=== PATIENT | male | born 1965 | race Caucasian/White ===

== ENCOUNTER 2019-09-26 00:02 | Emergency (ER) | payer BC ==
[~2019-09-26] VITALS: Ht 172.7 cm; Wt 78.0 kg
--- NOTE | 2019-09-26 00:12 | NUR ---
Patient walked into ER from home with c/o abdominal pain 1 hour [employer], describes pain as sharp and aching in the middle of the abdomen. Patient states was eating acidic arias before pain presented. Dr. Pederson at bedside for MSE.
[2019-09-26] MEDS ORDERED: CITA10TA17 PO (00:18)
[2019-09-26] MEDS ORDERED: ASPI-605 PO (00:18)
[2019-09-26] MEDS ORDERED: ATOR40TA PO (00:18)
[2019-09-26] MEDS ORDERED: CLON1TAB PO (00:18)
[2019-09-26] MEDS ORDERED: MORPHINE SULFATE 4 MG/1 ML DISP.SYRIN ONE (00:22)
[2019-09-26] MEDS ORDERED: PANTOPRAZOLE SODIUM 40 MG VIAL ONE (00:23)
[2019-09-26] MEDS ORDERED: ONDANSETRON 4 MG/2 ML VIAL ONE (00:23)
[2019-09-26] MEDS ORDERED: MORPHINE SULFATE 2 MG/1 ML DISP.SYRIN ONE (00:23)
[2019-09-26] MEDS ORDERED: PANTOPRAZOLE SODIUM 40 MG VIAL IV ONE (00:30)
[2019-09-26] MEDS ORDERED: ONDANSETRON 4 MG/2 ML VIAL IV ONE (00:30)
[2019-09-26] MEDS ORDERED: MORPHINE SULFATE 4 MG/1 ML DISP.SYRIN IV ONE (00:30)
[2019-09-26 00:32] LABS: BASOPHILS # (AUTO) 0.1 K/uL (0.0-8.0); BASOPHILS % (AUTO) 1.2 % (0.0-2.0); EOSINOPHILS # (AUTO) 0.1 K/uL (0.0-0.7); EOSINOPHILS % (AUTO) 1.7 % (0.0-7.0); HEMATOCRIT 45.1 % (36.7-47.1); HEMOGLOBIN 15.6 g/dL (12.5-16.3); LYMPHOCYTES # (AUTO) 3.6 K/uL (20.0-40.0); LYMPHOCYTES % (AUTO) 52.3 % (20.5-51.5); MEAN CORPUSCULAR HEMOGLOBIN 30.4 uug (23.8-33.4); MEAN CORPUSCULAR HGB CONC 35 g/dL (32.5-36.3); MEAN CORPUSCULAR VOLUME 87.7 fL (73.0-96.2); MONOCYTES # (AUTO) 0.6 K/uL (2.0-10.0); MONOCYTES % (AUTO) 8.4 % (0.0-11.0); NEUTROPHILS # (AUTO) 2.5 K/uL (1.8-8.9); NEUTROPHILS % (AUTO) 36.4 % (38.5-71.5); PLATELET COUNT (AUTO) 224 K/uL (152-348); RED BLOOD CELL COUNT(AUTO) 5.14 MIL/uL (4.06-5.63); WHITE BLOOD COUNT (AUTO) 6.8 K/uL (3.6-10.2)
[2019-09-26 00:52] LABS: CREATININE 1.1 mg/dL (0.6-1.3); POTASSIUM 3.7 mmol/L (3.5-5.1)
[2019-09-26 01:05] LABS: BILIRUBIN,DIRECT 0.1 mg/dL (0.0-0.2); BILIRUBIN,TOTAL 0.4 mg/dL (0.2-1.0); TOTAL PROTEIN, SERUM 7.9 g/dL (6.4-8.2)
[2019-09-26] MEDS ORDERED: HYDROMORPHONE 1 MG/1 ML DISP.SYRIN ONE (01:14)
[2019-09-26] MEDS ORDERED: HYDROMORPHONE 1 MG/1 ML DISP.SYRIN IV ONE (01:15)
[2019-09-26] MEDS ORDERED: SWABABLE VALVE TRANSFER SET EA MC ONE (01:24)
[2019-09-26] MEDS ORDERED: IV NORMAL SALINE 250 ML IV ONE (01:24)
[2019-09-26] MEDS ORDERED: IOHEXOL 350 100 ML INFUS..BTL ONE (01:24)
--- NOTE | 2019-09-26 02:05 | NUR ---
Patient back from CT.
[2019-09-26] MEDS ORDERED: IV NORMAL SALINE 1000 ML BAG IV ONE (02:30)
[2019-09-26] MEDS ORDERED: METOCLOPRAMIDE HCL 10 MG/2 ML VIAL ONE (05:41)
[2019-09-26] MEDS ORDERED: METOCLOPRAMIDE HCL 10 MG/2 ML VIAL IM ONE (05:45)
--- NOTE | 2019-09-26 05:50 | NUR ---
Patient discharged to home in stable condition. Written and verbal after care instructions given. Patient verbalizes understanding of instructions. Stressed follow up or return to ER for worsening s/s. Patient left with stable gait, picked up by spouse.
[2019-09-26 05:51] VITALS: BP 124/76
== END 2019-09-26 05:51 | disposition home or self-care (01) ==
LOC: ER 00:11
DX: R10.816 Epigastric abdominal tenderness (principal); E78.5 Hyperlipidemia, unspecified; Z95.5 Presence of coronary angioplasty implant and graft; Z82.49 Family history of ischemic heart disease and other diseases of the circulatory system; Z79.899 Other long term (current) drug therapy; Z79.82 Long term (current) use of aspirin
CPT/HCPCS: 36415; 71275; 74177; 80048; 80076; 83690; 84484 ×2; 85025; 93005 ×2; 96361; 96372; 96374; 96375; 99285; C9113; J1170; J2270 ×2; J2405; J2765; Q9967; 70030-TC; J7040; J7050

== ENCOUNTER 2024-02-29 12:35 | Emergency (ER) | payer BC ==
[~2024-02-29] VITALS: Ht 170.2 cm; Wt 74.4 kg
[~2024-02-29 12:35] MED LIST: ASPI-605 PO; ATOR40TA PO; CITA10TA17 PO; CLON1TAB PO
[2024-02-29 13:50] LABS: LYMPHOCYTES % (AUTO) 23.3 % (20.5-51.5)
[2024-02-29 13:54] LABS: BASOPHILS # (AUTO) 0.1 K/UL (0.0-0.2); BASOPHILS % (AUTO) 0.8 % (0.0-2.0); EOSINOPHILS # (AUTO) 0.1 K/uL (0.0-0.7); EOSINOPHILS % (AUTO) 0.8 % (0.0-7.0); HEMATOCRIT 45.4 % (36.7-47.1); HEMOGLOBIN 15.5 g/dL (12.5-16.3); LYMPHOCYTES # (AUTO) 2.3 K/uL (0.8-4.8); MEAN CORPUSCULAR HEMOGLOBIN 29.4 uug (23.8-33.4); MEAN CORPUSCULAR HGB CONC 34 g/dL (32.5-36.3); MEAN CORPUSCULAR VOLUME 86.2 fL (73.0-96.2); MONOCYTES # (AUTO) 0.7 K/uL (0.1-1.30); MONOCYTES % (AUTO) 6.6 % (0.0-11.0); NEUTROPHILS # (AUTO) 6.8 K/uL (1.8-8.9); NEUTROPHILS % (AUTO) 68.5 % (38.5-71.5); PLATELET COUNT (AUTO) 246 K/uL (152-348); RED BLOOD CELL COUNT(AUTO) 5.26 MIL/uL (4.06-5.63)
[2024-02-29 13:55] LABS: DIFFERENTIAL COMMENT 1
[2024-02-29 13:56] LABS: ERYTHROCYTE SEDIMENTATION RATE 19 MM/HR (0-15)
[2024-02-29 14:45] LABS: POTASSIUM 4.1 mmol/L (3.5-5.1)
[2024-02-29 14:46] LABS: ALBUMIN 3.9 g/dL (3.4-5.0); BILIRUBIN,DIRECT 0.2 mg/dL (0.0-0.2); BILIRUBIN,TOTAL 0.9 mg/dL (0.2-1.0); CALCIUM 9.5 mg/dL (8.5-10.1); CREATININE 0.9 mg/dL (0.6-1.3); MAGNESIUM 2.4 mg/dL (1.8-2.4); TOTAL PROTEIN, SERUM 7.7 g/dL (6.4-8.2)
[2024-02-29] MEDS ORDERED: CLON1TAB SL (16:24)
[2024-02-29] MEDS ORDERED: FLAS1EAC2 TP (16:24)
[2024-02-29] MEDS ORDERED: FLAS1KIT2 TP (16:24)
[2024-02-29 16:30] VITALS: O2SAT 99
== END 2024-02-29 16:34 | disposition home or self-care (01) ==
LOC: ER 12:35
DX: F41.0 Panic disorder [episodic paroxysmal anxiety] (principal); E78.5 Hyperlipidemia, unspecified; F32.A Depression, unspecified; Z98.890 Other specified postprocedural states; I10 Essential (primary) hypertension; Z79.82 Long term (current) use of aspirin; Z79.899 Other long term (current) drug therapy
CPT/HCPCS: 36415; 83735; 84484; 85025; 85651; 93005; A4606; A4663